=== PATIENT | female | born 1995 | race Two or more races ===

== ENCOUNTER → 2024-07-29 | Outpatient (CLI) | payer OTHER, SELFPAY ==
--- NOTE | 2024-07-29 | XR_ITS ---
EXAMINATION: Cervical spine, 5 views Technique: Cervical spine AP, AP odontoid, lateral, bilateral obliques, 5 views Exam date and time: July 29, 2024, 1241 hrs. Indications: Neck pain 2 months Findings: Satisfactory alignment cervical vertebral bodies. No cervical fracture Early posterior osteophyte formation C5-C6 Intact odontoid No significant disc narrowing Impression: Early degenerative changes C5-C6
== END | disposition home or self-care (01) ==
PROVIDERS: PCP Registered Nurse Community Health; Referring Provider Registered Nurse Community Health; Visit Provider Registered Nurse Community Health
DX: M54.2 Cervicalgia (principal)
CPT/HCPCS: 72050

== ENCOUNTER 2025-03-30 18:24 | Emergency (ER) | payer OTHER, SELFPAY ==
--- NOTE | 2025-03-30 18:31 | EKG_ITS ---
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
[2025-03-30 18:38] VITALS: BP 126/77; PULSE 101; RESP 18; TEMP 36.8; O2SAT 96; BMI 21.4
--- NOTE | 2025-03-30 18:46 | XR_ITS ---
EXAMINATION: PA chest single view TECHNIQUE: Upright PA chest single view Date and time: March 30, 2025, 1916 hours INDICATIONS: Onset chest pain today. FINDINGS: Normal heart size No pneumonia or pulmonary edema. Suspicious for 4 mm pulmonary nodule right upper lobe Osseous structures are intact IMPRESSION: Recommend AP lordotic chest follow-up to exclude 4 mm pulmonary nodule right upper lobe
--- NOTE | 2025-03-30 18:48 | PD.EDCHEST ---
ED Chest Pain RME/HPI General Chief Complaint: Chest Pain Stated Complaint: CHEST PAIN, LEFT ARM NUMB PER PT Time Seen by Provider: 03/30/25 18:41 Arrival date/time: 03/30/25 18:24 29F with no significant PMH presents to ED with multiple complaints including CASTANO that started yesterday, as well as CP, SOB, and BUE numbness. Patient denies URI symptoms, as well as alcohol/drug use, and known psych disorders. No family history of CAD in members less than 50 years of age. Limitations: no limitations Related Data Home Medications ?Medication ?Instructions ?Recorded ?Confirmed vitamin-ferrous fumarate 1 tab PO QDAY 06/22/22 06/22/22 28 mg iron-folic acid 800 mcg tablet ( Vitamins with Minerals) Previous Rx's ?Medication ?Instructions ?Recorded docusate sodium 100 mg capsule 100 mg PO BID #60 caps 06/22/22 (Colace) ibuprofen 600 mg tablet 600 mg PO Q6H PRN pain #90 tabs 06/22/22 lanolin 50 % topical ointment 1 applic topical TID PRN skin 06/22/22 irritation #15 tubes Allergies Allergy/AdvReac Type Severity Reaction Status Date / Time No Known Allergies Allergy Verified 03/30/25 18:24 Review of Systems Review of Systems Systems Reviewed: All systems reviewed, normal except as documented Constitutional Constitutional: Reports as per HPI and Reports headache(s) ENT Ears, Nose, Mouth, and Throat: Reports headache(s) Cardiovascular Cardiovascular: Reports as per HPI, Reports chest pain and Reports dyspnea Respiratory Respiratory: Reports dyspnea Musculoskeletal Musculoskeletal: Reports numbness and Reports tingling Neurologic Neurologic: Reports as per HPI, Reports headache(s), Reports numbness and Reports tingling Past Medical History Past Medical History NEUROLOGIC: Negative Neurological Disorders CARDIAC: Negative Cardiac Disorders or Congestive Heart Failure RESPIRATORY: Negative Chronic Obstructive Pulmonary Disease (COPD) GASTROINTESTINAL: Negative Gastrointestinal Disorders, Hepatitis or Colorectal Cancer GENITOURINARY: Negative Genitourinary Disorders, Renal Disease or Prostate Cancer REPRODUCTIVE: Positive Previous Pregnancies (X1); Negative Breast Cancer or Testicular Cancer MUSCULOSKELETAL: Negative Musculoskeletal Disorders or Bone Cancer ENDOCRINE: Negative Endocrine Disorders, Diabetes Mellitus Type 1 or Diabetes Mellitus Type 2 HEMATOLOGIC: Negative Blood Disorders OTHER HISTORY: Positive Hospitalization (CHILDBIRTH); Negative Autoimmune Disease, Down Syndrome, Developmental Delay, Shingles, Falls, Blood Transfusions, Blood Transfusion Reaction, Anesthesia Reactions, Organ Transplant, Chemotherapy, Radiation Therapy, Hyperbaric Therapy, MRSA, VRSA, Vancomycin-Resistant Enterococci, Human Immunodeficiency Virus (HIV), Chicken Pox, Measles, Mumps, Rubella ([place] Measles), Pertussis, Clostridium Difficile, Cancer, Breast Cancer, Cervical Cancer, Colorectal Cancer, Lung Cancer, Ovarian Cancer, Prostate Cancer or Testicular Cancer Family History FAMILY HISTORY: Positive Family Cancer (MOTHER) and Family Surgery; Negative Family Psychiatric Problems, Family Respiratory Disorders, Family Cardiac Disorders, Family Gastrointestinal Problems or Family Anesthesia Reaction Surgical History SURGICAL: Negative Section or Organ Transplant Social History SMOKING STATUS: Never smoker SUBSTANCE USE: does not use ED Exam General Limitations: Present no limitations General appearance: Present alert, in no apparent distress and anxious (mild) Head Head exam: Present atraumatic Neck Neck exam: Present normal inspection, full ROM and trachea midline Chest Chest inspection: Present normal inspection and symmetric chest wall rise Respiratory Respiratory exam: Present normal lung sounds bilaterally Cardiovascular Cardiovascular exam: Present regular rate, normal rhythm and normal heart sounds Neurological Exam Neurological exam: Present alert and oriented X3 Psychiatric Psychiatric exam: Present normal affect and anxious (mikld) Skin Skin exam: Present warm, dry, intact and normal color Course Quality Measures none Orders Category Date Time Status Bedside COVID-19 Antigen Test NOW Care 03/30/25 18:48 Active EKG (ED ONLY) *Do not use* NOW Care 03/30/25 18:31 Completed EKG (ED Only) Stat Exams 03/30/25 18:31 Draft XR chest 1V portable Stat Exams 03/30/25 18:46 Completed CBC Stat Lab 03/30/25 19:00 Completed Comprehensive Metabolic Panel Stat Lab 03/30/25 19:00 Completed D-Dimer Stat Lab 03/30/25 19:00 Completed Drug Screen,Urine Stat Lab 03/30/25 19:05 Completed HCG Qualitative,Urine Stat Lab 03/30/25 19:05 Completed Troponin I Stat Lab 03/30/25 19:00 Completed Troponin I Stat Lab 03/30/25 22:06 Completed Diazepam [Valium] Med 03/30/25 18:46 Discontinued 5 mg PO X1 ONE Vital Signs Vital signs: Vital Signs Temperature 98.2 F 03/30/25 18:38 Pulse Rate 101 H 03/30/25 18:38 Respiratory Rate 18 03/30/25 18:38 Blood Pressure 126/77 03/30/25 18:38 Pulse Oximetry (%) 96 03/30/25 18:38 Oxygen Delivery Method Room Air 03/30/25 18:38 O2 at 96% on RA and WNLs Chest Pain MDM Narrative MDM Narrative:: 29F with no significant PMH presents to ED with multiple complaints including CASTANO that started yesterday, as well as CP, SOB, and BUE numbness. Patient denies URI symptoms, as well as alcohol/drug use, and known psych disorders. No family history of CAD in members less than 50 years of age. Physical exam reveals clear lungs and normal WOB. RRR. Speech normal. Patient is afebrile, calm, but mildly anxious. EKG is sinus tach of 103 with minimal non-regional ST depression. CXR unremarkable. No leukocytosis or gross anemia. Swabs neg. CMP unremarkable. D-dimer normal. Trop (2x normal). HCG/tox screen neg. Valium improved symptoms. Meds and insurance counselor given. Patient data External records reviewed:: [facility] previous records Clinical information provided by:: patient Social determinants that could affect healthcare access:: none Patient has the following chronic illnesses:: none How is presenting disease/condition affected by chronic disease/condition?: no chronic disease Evaluation data The following diagnostics were reviewed and interpreted by me:: lab results, radiology exam(s) and EKG tracing(s) Lab and/or radiology exams considered but not ordered:: ordered Interpretation Summary: above Medications / Prescriptions Medications or Prescriptions considered but not ordered:: ordered Medication administrations:: Medication Administration History Discontinued Medications Diazepam (Diazepam 5 Mg Tablet) 5 mg PO X1 ONE Stop: 03/30/25 18:47 Last Admin: 03/30/25 19:24 Dose: 5 mg Documented By: CVL above Consultations Consultation(s) initiated? (list below): No Diagnosis Chest Pain Differential Diagnosis: fracture of rib, pneumothorax, stable angina, unstable angina pectoris, atypical chest pain, st elevation myocardial infarction, costochondritis, chest pain, biliary colic and other (PE, anxiety, URI) Most likely diagnosis given after review of the tests above:: atypical chest pain and anxiety Admission Indicated Admission indicated?: not indicated Admission Request Was there a request for admission?: No Disposition Plan Disposition Plan: Discharge Discharge Attestation Discharge Attestation: The patient and all family members were given an opportunity to ask questions and understood the discharge instructions. Discharge instructions specifically effects, indications for sooner follow up or return to the emergency department, and the expected course of current diagnosis. Patient condition: Stable Discharge Plan Plan Patient Disposition: HOME (Self Care) Discharge Disposition comment: Stable Prescriptions/Referrals Prescriptions/Med Rec: No Action vit-iron fum-folic ac [ Vitamin with Minerals] 28 mg iron- 800 mcg Tablet 1 tab PO QDAY docusate sodium [Colace] 100 mg capsule 100 mg PO BID Qty: 60 0RF ibuprofen 600 mg tablet 600 mg PO Q6H PRN (Reason: pain) Qty: 90 0RF lanolin 50 % ointment 1 applic topical TID PRN (Reason: skin irritation) Qty: 15 0RF Referrals: Chary Thakkar FNP [Primary Care Provider] - In 1 week Problem List Clinical Impression: Atypical chest pain, Anxiety Patient/Caregiver Discharge Instructions Education Materials: Your Body's Response to Anxiety, ED Chest Pain, Uncertain Cause Additional Instructions: Please follow-up with PCP within 24-48 hours and return immediately if symptoms worsen. Print Language: Taiwanese Stand Alone Forms: Patient Portal Info Letter NIA/MACHINE INSTALLER Supervising Physician NIA/BETINA Supervising Physician: Dr. Quintanilla
[2025-03-30 19:21] LABS: Basophils # (Auto) 0.0 Thou/mm3 (0.0-0.2); Basophils % (Auto) 1 % (0-2.5); Eosinophils # (Auto) 0.1 Thou/mm3 (0.0-0.5); Eosinophils % (Auto) 1 % (0-10); Hematocrit 39.1 % (36.0-46.0); Hemoglobin 13.1 g/dL (12.0-16.0); Immature Granulocytes Auto 0.01 Thou/mm3 (0.00-0.00); Lymphocytes # (Auto) 3.9 Thou/mm3 (1.0-4.8); Lymphocytes % (Auto) 51 % (10-50); Mean Corpuscular HGB Conc 33.5 g/dl (31.0-37.0); Mean Corpuscular Hemoglobin 30.5 pg (25.0-35.0); Mean Corpuscular Volume 91 fL (80-100); Monocytes # (Auto) 0.4 Thou/mm3 (0.0-0.8); Monocytes % (Auto) 5 % (0-12); Neutrophils # (Auto) 3.1 Thou/mm3 (1.8-7.7); Neutrophils % (Auto) 42 % (37-80); Nucleated Red Blood Cell # 0.00 Thou/mm3 (0.00-0.00); Nucleated Red Blood Cell % 0 /100 WBC (0); Platelet Count 254 Thou/mm3 (140-440); RDW Standard Deviation 41.6 fL (36.4-46.3); Red Blood Count 4.30 Miln/mm3 (4.00-5.20); White Blood Count 7.5 Thou/mm3 (3.6-11.0)
[2025-03-30] MEDS: DIAZEPAM 5 MG TABLET PO (19:24)
[2025-03-30 19:25] LABS: HCG Qualitative,Urine Negative
[2025-03-30 19:34] LABS: Amphetamine/Methamp Scrn,U Negative (Negative); Barbiturate Screen,Urine Negative (Negative); Benzodiazepines Screen,Urine Negative (Negative); Benzoylecgonine Screen, Ur Negative (Negative); Fentanyl Screen,Urine Negative (Negative); Opiate Screen,Urine Negative (Negative); THC Screen,Urine Negative (Negative)
[2025-03-30 19:36] LABS: Alanine Aminotransferase 15 U/L (10-49); Albumin, Serum 5.2 gm/dL (3.5-5.0); Albumin/Globulin Ratio 2.3 (1.2-2.2); Alkaline Phosphatase 75 U/L (46-116); Anion Gap 11 (7-16); Aspartate Amino Transferase 22 U/L (0-34); BUN/Creatinine Ratio 10 Ratio (12-20); Bilirubin,Total 0.4 mg/dL (0.3-1.2); Blood Urea Nitrogen 7 mg/dL (9-23); Calcium 10.0 mg/dL (8.3-10.6); Calcium (Corrected) 10.0 mg/dL (8.5-10.1); Carbon Dioxide 26.2 mMol/L (20.0-31.0); Chloride 107 mMol/L (98-107); Creatinine (Component) 0.7 mg/dL (0.6-1.3); Estimated Creatinine Clearance 99.0 mL/min (>60); Globulin 2.3 gm/dL (2.3-3.5); Glucose 121 mg/dL (74-106); Osmolality,Calculated 285 (275-295); Potassium 3.4 mMol/L (3.4-5.1); Sodium 144 mMol/L (136-145); Total Protein 7.5 gm/dL (5.7-8.2); Troponin I < 0.020 ng/mL (0.0-0.045); eGFR > 60 See Note
[2025-03-30 20:16] LABS: D-Dimer < 250 ng/mL (<600)
[2025-03-30 22:47] LABS: Troponin I < 0.020 ng/mL (0.0-0.045)
== END 2025-03-30 23:15 | disposition home or self-care (01) ==
PROVIDERS: Physician Assistant; Emergency Provider Emergency Medicine; PCP Registered Nurse Community Health
DX: F41.9 Anxiety disorder, unspecified (principal)
CPT/HCPCS: 36415; 71045; 80053; 80307; 81025; 84484; 85025; 85379; 87635; 93005; 99283; A9270